=== PATIENT | female | born 1985 | race Hispanic/Latino ===

== ENCOUNTER 2018-12-14 10:58 | Emergency (ER) | payer SELFPAY ==
--- NOTE | 2018-12-14 12:14 | RAD ---
4 VIEWS LEFT KNEE: Date: 12/14/18 HISTORY: Pain. Injury. Popping sensation when walking. COMPARISON: None. FINDINGS: Joint spaces are preserved. No fracture or malalignment. No joint effusion. IMPRESSION: No fracture or malalignment. No joint effusion. If there is concern for internal derangement, nonemer gent MRI recommended. POS: [facility]
== END 2018-12-14 11:58 | disposition home or self-care (01) ==
LOC: BURERS 10:58
DX: M23.92 Unspecified internal derangement of left knee (principal); X58.XXXA Exposure to other specified factors, initial encounter

== ENCOUNTER 2018-12-22 11:27 | Emergency (ER) | payer SELFPAY | END 2018-12-22 11:46 | disposition home or self-care (01) | LOC: BURERS 11:27 | DX: M25.562 Pain in left knee (principal) | CPT/HCPCS: 99281 ==